=== PATIENT | female | born 1960 | race Caucasian/White ===

== ENCOUNTER 2020-11-25 12:20 | Emergency (ER) | payer SELFPAY ==
[~2020-11-25] VITALS: Ht 162.6 cm; Wt 88.5 kg
[2020-11-25 14:23] LABS: Basophils # (auto) 0.1 10 ^3/uL (0-0.2); Basophils % (auto) 0.7 % (0.0-2.0); Eosinophils # (auto) 0.1 10 ^3/uL (0-0.8); Eosinophils % (auto) 0.9 % (0.0-7.0); Hematocrit 38.8 % (36.0-46.0); Hemoglobin 13.2 g/dL (12.2-16.2); Lymphocytes # (auto) 1.3 10 ^3/uL (0.4-5.4); Mean Corpuscular Hemoglobin 29.8 pg (28.0-32.0); Mean Corpuscular Hgb Conc. 33.9 g/dL (32.0-36.0); Mean Corpuscular Volume 87.9 fL (80.0-100.0); Monocytes # (auto) 0.7 10 ^3/uL (0-1.3); Monocytes % (auto) 7.9 % (0.0-12.0); Neutrophils # (auto) 6.2 10 ^3/uL (1.6-8.6); Neutrophils % (auto) 74.5 % (37.0-80.0); Red Blood Cells 4.42 10^6/uL (4.0-5.20); White Blood Cell 8.4 10^3/uL (4.4-10.8)
[2020-11-25 14:33] LABS: Albumin 3.2 g/dL (3.4-5.0); Calcium 9.6 mg/dL (8.5-10.1); Potassium 3.8 mmol/L (3.5-5.1)
[2020-11-25 14:36] LABS: BUN/Creatinine Ratio 12.3; Bilirubin, Total 0.4 mg/dL (0.2-1.0); Total Protein 7.8 g/dL (6.4-8.2)
[2020-11-25] MEDS ORDERED: SODIUM CHLORIDE 0.9% 1,000 ML IV ONE (15:45)
[2020-11-25 18:15] VITALS: BP 120/77
== END 2020-11-25 18:45 | disposition home or self-care (01) ==
LOC: ER 12:20 → EDBD 12:20 → ER 18:45
DX: I95.9 Hypotension, unspecified (principal)
CPT/HCPCS: 36415; 80053; 85025; 93005; 96360; 99285; J7030

== ENCOUNTER 2021-09-17 14:07 | Inpatient (IN) | payer MEDICAID, OTHER ==
[~2021-09-17] VITALS: Ht 162.6 cm; Wt 76.2 kg
[2021-09-17] MEDS ORDERED: HYDROcodone-ACET 10/325MG TAB PO ONE (18:30)
[2021-09-17 21:36] LABS: Basophils # (auto) 0 10 ^3/uL (0-0.2); Basophils % (auto) 0.4 % (0.0-2.0); Eosinophils # (auto) 0.1 10 ^3/uL (0-0.8); Eosinophils % (auto) 0.8 % (0.0-7.0); Hemoglobin 12.6 g/dL (12.2-16.2); Lymphocytes # (auto) 2.2 10 ^3/uL (0.4-5.4); Lymphocytes % (auto) 24.3 % (10.0-50.0); Mean Corpuscular Hemoglobin 28.3 pg (28.0-32.0); Mean Corpuscular Hgb Conc. 34.1 g/dL (32.0-36.0); Mean Corpuscular Volume 82.9 fL (80.0-100.0); Monocytes # (auto) 0.9 10 ^3/uL (0-1.3); Monocytes % (auto) 10.5 % (0.0-12.0); Neutrophils # (auto) 5.7 10 ^3/uL (1.6-8.6); Nucleated Red Blood Cells % 0.1 %; Red Blood Cells 4.47 10^6/uL (4.0-5.20); Red Cell Distribution Width 15.9 % (11.8-14.3)
[2021-09-17 21:55] LABS: Albumin 3.8 g/dL (3.4-5.0); BUN/Creatinine Ratio 26.8; Calcium 9.3 mg/dL (8.5-10.1); Potassium 4.3 mmol/L (3.5-5.1)
[2021-09-17 21:58] LABS: Bilirubin, Total 0.4 mg/dL (0.2-1.0); Total Protein 7.9 g/dL (6.4-8.2)
[2021-09-17 22:04] LABS: INR 1.03 (0.9-1.15)
[2021-09-17] MEDS ORDERED: DEXTROSE (50%) 50ML SYRG IV PRN (22:45)
[2021-09-17] MEDS ORDERED: hydrALAZINE HCL 20 MG/ML VL IV PRN (22:45)
[2021-09-17] MEDS ORDERED: ONDANSETRON HCL 4 MG/2 ML VIAL IV PRN (22:45)
[2021-09-17] MEDS ORDERED: METOPROLOL TARTRATE 25 MG TAB PO ONE (22:45)
[2021-09-17] MEDS ORDERED: DOCUSATE SOD 100 MG CAP PO PRN (22:45)
[2021-09-17 23:10] LABS: Urine Bacteria NONE SEEN /hpf (None Seen); Urine Blood Negative /uL (Negative); Urine Mucus FEW (None Seen); Urine Specific Gravity 1.034 (1.001-1.035); Urine WBC 107 /hpf (0 - 5)
[2021-09-17] MEDS: SODIUM CHLORIDE 0.9% 1,000 ML IV SCH (23:22)
[2021-09-17] MEDS ORDERED: NITROGLYCERIN 0.4 MG SL TAB SL PRN (23:45)
[2021-09-17] MEDS ORDERED: MORPHINE SULFATE INJ 2 MG/ml SYRG IV PRN (23:45)
[2021-09-18] MEDS: HYDROcodone-ACET 5/325MG TAB PO PRN ×2 (00:06→15:22)
[2021-09-18] MEDS ORDERED: OXYB10TA14 PO (02:49)
[2021-09-18] MEDS ORDERED: MELO1TAB56 PO (02:49)
[2021-09-18] MEDS ORDERED: LEVO50TA7 PO (02:49)
[2021-09-18] MEDS ORDERED: METO25TA5 PO (02:49)
[2021-09-18] MEDS ORDERED: CYCL-839 PO (02:49)
[2021-09-18] MEDS ORDERED: FLUO-125 PO (02:49)
[2021-09-18] MEDS ORDERED: HYDR-4798 PO (02:49)
[2021-09-18 06:17] LABS: Basophils # (auto) 0.1 10 ^3/uL (0-0.2); Eosinophils # (auto) 0.2 10 ^3/uL (0-0.8); Eosinophils % (auto) 4.1 % (0.0-7.0); Hematocrit 33.2 % (36.0-46.0); Hemoglobin 11.1 g/dL (12.2-16.2); Lymphocytes # (auto) 2.1 10 ^3/uL (0.4-5.4); Lymphocytes % (auto) 36.3 % (10.0-50.0); Mean Corpuscular Hemoglobin 28.3 pg (28.0-32.0); Mean Corpuscular Hgb Conc. 33.5 g/dL (32.0-36.0); Mean Corpuscular Volume 84.4 fL (80.0-100.0); Monocytes # (auto) 0.7 10 ^3/uL (0-1.3); Neutrophils # (auto) 2.7 10 ^3/uL (1.6-8.6); Neutrophils % (auto) 46.6 % (37.0-80.0); Red Blood Cells 3.93 10^6/uL (4.0-5.20); Red Cell Distribution Width 16.5 % (11.8-14.3); White Blood Cell 5.7 10^3/uL (4.4-10.8)
[2021-09-18 06:30] LABS: Albumin 2.8 g/dL (3.4-5.0); Calcium 7.8 mg/dL (8.5-10.1); Potassium 3.5 mmol/L (3.5-5.1)
[2021-09-18 06:33] LABS: BUN/Creatinine Ratio 38.5; Bilirubin, Total 0.4 mg/dL (0.2-1.0); Total Protein 6.5 g/dL (6.4-8.2)
[2021-09-18] MEDS: InsuLIN REG 1unit/0.01ml Soln (100units/ml) SC SCH ×2 (07:00→11:30)
[2021-09-18 08:39] VITALS: BP 118/70
[2021-09-18] MEDS: METOPROLOL TARTRATE 25 MG TAB PO SCH ×2 (09:04→22:01)
[2021-09-18] MEDS: ACCU-CHEK COMFORT CURVE STRIP VI SCH ×2 (09:05→11:30)
[2021-09-18] MEDS: ENOXAPARIN SOD 40 MG/0.4 ML SYRINGE SC SCH (09:05)
[2021-09-18] MEDS: LEVOTHYROXINE SODIUM 25 MCG TAB PO SCH (09:05)
[2021-09-18] MEDS ORDERED: cefTRIAXone 1GM/50ML D5W 50 ML IV ONE (12:00)
[2021-09-18 13:00] VITALS: BP 110/60
[2021-09-18] MEDS: SODIUM CHLORIDE 0.9% 1,000 ML IV SCH (14:45)
[2021-09-18 16:48] VITALS: BP 118/73
[2021-09-18 22:00] VITALS: BP 105/56
[2021-09-18] MEDS: HYDROcodone-ACET 10/325MG TAB PO PRN (22:00)
[2021-09-19 03:24] LABS: Alcohol, Urine < 3.0 mg/dL (0-10); Amphetamine Screen, Urine NEGATIVE (NEGATIVE); Barbiturate Scree,Urine NEGATIVE (NEGATIVE); Benzodiazephine Screen, Urine NEGATIVE (NEGATIVE); Cannabinoid Screen, Urine NEGATIVE (NEGATIVE); Cocaine Screen, Urine NEGATIVE (NEGATIVE); Opiate Scree,Urine POSITIVE (NEGATIVE); Phencyclidine Screen, Urine NEGATIVE (NEGATIVE)
[2021-09-19 05:00] VITALS: BP 112/57
[2021-09-19] MEDS: LEVOTHYROXINE SODIUM 25 MCG TAB PO SCH (06:24)
[2021-09-19] MEDS: SODIUM CHLORIDE 0.9% 1,000 ML IV SCH ×2 (08:05→21:05)
[2021-09-19 08:51] VITALS: BP 106/45
[2021-09-19 09:00] VITALS: BP 106/45
[2021-09-19] MEDS: cefTRIAXone 1GM/50ML D5W 50 ML IV SCH (09:00)
[2021-09-19] MEDS: OXYBUTYNIN CHL 5 MG TAB PO SCH ×2 (10:00→22:49)
[2021-09-19] MEDS: ENOXAPARIN SOD 40 MG/0.4 ML SYRINGE SC SCH (10:00)
[2021-09-19] MEDS: FLUoxetine HCL 20 MG CAP PO SCH (10:00)
[2021-09-19] MEDS: METOPROLOL TARTRATE 25 MG TAB PO SCH ×2 (10:00→22:49)
[2021-09-19] MEDS: HYDROcodone-ACET 10/325MG TAB PO PRN (10:40)
[2021-09-19 12:00] VITALS: BP 109/66
[2021-09-19] MEDS: ACETAMINOPHEN 325 MG TAB PO PRN (20:58)
[2021-09-19 22:00] VITALS: BP 118/55
[2021-09-19] MEDS: MUPIROCIN 2% OINT 15gm or 22gm EACHNOSTRI SCH (22:00)
[2021-09-19] MEDS ORDERED: LORazepam 2MG/ML-1ML VIAL IV PRN (22:30)
[2021-09-20] MEDS: HYDROcodone-ACET 10/325MG TAB PO PRN (02:41)
[2021-09-20 05:00] VITALS: BP 129/68
[2021-09-20] MEDS: LEVOTHYROXINE SODIUM 25 MCG TAB PO SCH (06:43)
[2021-09-20 09:00] VITALS: BP 113/59
[2021-09-20] MEDS: cefTRIAXone 1GM/50ML D5W 50 ML IV SCH (09:00)
[2021-09-20] MEDS: FLUoxetine HCL 20 MG CAP PO SCH (10:00)
[2021-09-20] MEDS: METOPROLOL TARTRATE 25 MG TAB PO SCH ×2 (10:00→21:47)
[2021-09-20] MEDS: OXYBUTYNIN CHL 5 MG TAB PO SCH ×2 (10:00→21:47)
[2021-09-20] MEDS: ENOXAPARIN SOD 40 MG/0.4 ML SYRINGE SC SCH (10:00)
[2021-09-20] MEDS: MUPIROCIN 2% OINT 15gm or 22gm EACHNOSTRI SCH ×2 (10:00→21:46)
[2021-09-20] MEDS: ACETAMINOPHEN 325 MG TAB PO PRN (11:55)
[2021-09-20 13:00] VITALS: BP 123/69
[2021-09-20 17:00] VITALS: BP 143/81
[2021-09-20] MEDS: SODIUM CHLORIDE 0.9% 1,000 ML IV SCH (17:25)
[2021-09-20 22:00] VITALS: BP 133/73
[2021-09-21] MEDS: HYDROcodone-ACET 10/325MG TAB PO PRN ×2 (02:54→09:41)
[2021-09-21 05:00] VITALS: BP 144/72
[2021-09-21] MEDS: LEVOTHYROXINE SODIUM 25 MCG TAB PO SCH (06:10)
[2021-09-21 08:00] VITALS: BP 145/76
[2021-09-21 09:00] VITALS: BP 145/76
[2021-09-21] MEDS: ENOXAPARIN SOD 40 MG/0.4 ML SYRINGE SC SCH (09:40)
[2021-09-21] MEDS: cefTRIAXone 1GM/50ML D5W 50 ML IV SCH (09:40)
[2021-09-21] MEDS: OXYBUTYNIN CHL 5 MG TAB PO SCH ×2 (09:41→21:56)
[2021-09-21] MEDS: FLUoxetine HCL 20 MG CAP PO SCH (09:41)
[2021-09-21] MEDS: METOPROLOL TARTRATE 25 MG TAB PO SCH ×2 (09:41→21:57)
[2021-09-21] MEDS: MUPIROCIN 2% OINT 15gm or 22gm EACHNOSTRI SCH ×2 (09:42→21:56)
[2021-09-21] MEDS: SODIUM CHLORIDE 0.9% 1,000 ML IV SCH (10:05)
[2021-09-21] MEDS ORDERED: MUPI2CRE17 EX (10:08)
[2021-09-21 13:00] VITALS: BP 146/77
[2021-09-21 17:48] VITALS: BP 132/80
[2021-09-21] MEDS: ACETAMINOPHEN 325 MG TAB PO PRN (19:29)
[2021-09-21 22:00] VITALS: BP 120/72
[2021-09-22] MEDS: HYDROcodone-ACET 10/325MG TAB PO PRN (01:18)
[2021-09-22 05:00] VITALS: BP 159/82
[2021-09-22] MEDS: SODIUM CHLORIDE 0.9% 1,000 ML IV SCH (05:20)
[2021-09-22] MEDS: LEVOTHYROXINE SODIUM 25 MCG TAB PO SCH (06:33)
[2021-09-22] MEDS: cefTRIAXone 1GM/50ML D5W 50 ML IV SCH (08:19)
[2021-09-22] MEDS: FLUoxetine HCL 20 MG CAP PO SCH (08:20)
[2021-09-22] MEDS: OXYBUTYNIN CHL 5 MG TAB PO SCH (08:20)
[2021-09-22] MEDS: METOPROLOL TARTRATE 25 MG TAB PO SCH (08:21)
[2021-09-22] MEDS: HYDROcodone-ACET 5/325MG TAB PO PRN (08:21)
[2021-09-22] MEDS: MUPIROCIN 2% OINT 15gm or 22gm EACHNOSTRI SCH (08:26)
[2021-09-22] MEDS: ENOXAPARIN SOD 40 MG/0.4 ML SYRINGE SC SCH (08:27)
[2021-09-22 09:00] VITALS: BP 146/88
[2021-09-22 13:00] VITALS: BP 155/87
[2021-09-22 13:55] VITALS: BP 146/88
== END 2021-09-22 16:38 | disposition home or self-care (01) | DRG 204 ==
LOC: ER 14:07 → EDBD 14:07 → TELE 23:31 → TELE-WESTW 09-18 06:05
PROVIDERS: ADMIT Nurse Practitioner Family; ATTEND Family Medicine
DX: R55 Syncope and collapse (principal); D64.9 Anemia, unspecified; E03.9 Hypothyroidism, unspecified; E11.9 Type 2 diabetes mellitus without complications; G89.4 Chronic pain syndrome; Z20.822 Contact with and (suspected) exposure to COVID-19; W01.0XXA Fall on same level from slipping, tripping and stumbling without subsequent striking against object, initial encounter; N39.0 Urinary tract infection, site not specified; I10 Essential (primary) hypertension; M19.90 Unspecified osteoarthritis, unspecified site; Z80.3 Family history of malignant neoplasm of breast; Z82.49 Family history of ischemic heart disease and other diseases of the circulatory system; Y93.89 Activity, other specified; Y92.89 Other specified places as the place of occurrence of the external cause; Y99.8 Other external cause status; Z79.84 Long term (current) use of oral hypoglycemic drugs
CPT/HCPCS: 36415; 70450; 70551; 71045; 74176; 80053; 80307; 81001; 82962; 83036; 84443; 84484; 85025; 85610; 87040; 87081; 87086; 93005; 93306; 93886; 95819; 97110; 97163; 97530; G0378; J0696

== ENCOUNTER 2021-10-17 12:42 | Emergency (ER) | payer MEDICAID ==
[~2021-10-17] VITALS: Ht 165.1 cm; Wt 68.0 kg
[~2021-10-17 12:42] MED LIST: CYCL-839 PO; FLUO-125 PO; HYDR-4798 PO; LEVO50TA7 PO; MELO1TAB56 PO; METO25TA5 PO; MUPI2CRE17 EX; OXYB10TA14 PO
[2021-10-17 13:35] VITALS: BP 148/84
[2021-10-17] MEDS ORDERED: KETOROLAC TROMETH 60MG/2ML VIAL IM ONE (13:45)
[2021-10-17] MEDS ORDERED: HYDROcodone-ACET 5/325MG TAB PO ONE (15:00)
[2021-10-17] MEDS ORDERED: PRED20TA2 PO (15:53)
[2021-10-17] MEDS ORDERED: TRAM-297 PO (15:53)
== END 2021-10-17 15:57 | disposition home or self-care (01) ==
LOC: ER 12:42 → EDBD 12:42 → EDSEX 12:42 → ER 15:57
DX: M48.07 Spinal stenosis, lumbosacral region (principal); M54.16 Radiculopathy, lumbar region; G89.29 Other chronic pain; M54.50 Low back pain, unspecified; I10 Essential (primary) hypertension; E11.9 Type 2 diabetes mellitus without complications; E03.9 Hypothyroidism, unspecified; Z79.899 Other long term (current) drug therapy
CPT/HCPCS: 72131; 96372; 99284; J1885

== ENCOUNTER → 2024-07-10 | Outpatient (CLI) | payer MEDICAID ==
[~2024-07-10] MED LIST changes: +MELO15TA29 PO; -MELO1TAB56 PO; +PRED20TA2 PO; +TRAM-297 PO
[2024-07-10 13:12] LABS: Basophils # (auto) 0.1 10 ^3/uL (0-0.2); Basophils % (auto) 1.1 % (0.0-2.0); Eosinophils # (auto) 0.1 10 ^3/uL (0-0.8); Eosinophils % (auto) 1.3 % (0.0-7.0); Hematocrit 42.6 % (36.0-46.0); Hemoglobin 14.4 g/dL (12.2-16.2); Lymphocytes # (auto) 2.1 10 ^3/uL (0.4-5.4); Lymphocytes % (auto) 30.8 % (10.0-50.0); Mean Corpuscular Hemoglobin 30.8 pg (28.0-32.0); Mean Corpuscular Hgb Conc. 33.9 g/dL (32.0-36.0); Mean Corpuscular Volume 90.9 fL (80.0-100.0); Monocytes # (auto) 0.5 10 ^3/uL (0-1.3); Monocytes % (auto) 7.6 % (0.0-12.0); Neutrophils # (auto) 4.1 10 ^3/uL (1.6-8.6); Neutrophils % (auto) 59.2 % (37.0-80.0); Nucleated Red Blood Cells % 0.1 %; Platelet Count (auto) 276 10^3/uL (140-450); Red Blood Cells 4.68 10^6/uL (4.0-5.20); Red Cell Distribution Width 13.9 % (11.8-14.3); White Blood Cell 6.9 10^3/uL (4.4-10.8)
[2024-07-10 13:39] LABS: Alanine Aminotransferase 27 U/L (7-40); Albumin 4.5 g/dL (3.2-4.8); Anion Gap 8 (5-15); Aspartate Aminotransferase 22 U/L (13-40); BUN/Creatinine Ratio 22.8 (10.0-20.0); Blood Urea Nitrogen 18 mg/dL (9-23); Calcium 9.8 mg/dL (8.7-10.4); Carbon Dioxide 27 mmol/L (20-31); Chloride 105 mmol/L (98-107); Glucose 79 mg/dL (74-106); HDL Cholesterol 44 mg/dL (40-59); Potassium 4.5 mmol/L (3.5-5.1); Sodium 140 mmol/L (136-145); Total Protein 7.7 g/dL (5.7-8.2)
[2024-07-10 13:40] LABS: Bilirubin, Total 0.6 mg/dL (0.2-1.0)
[2024-07-10 13:43] LABS: Alkaline Phosphatase 127 U/L (46-116); Cholesterol 216 mg/dL (< 200); LDL Cholesterol 141 mg/dL (< 100); Triglycerides 214 mg/dL (< 150)
== END | disposition home or self-care (01) ==
LOC: LAB 12:43
PROVIDERS: ATTEND Nurse Practitioner Family
DX: I10 Essential (primary) hypertension (principal); E03.9 Hypothyroidism, unspecified; E66.9 Obesity, unspecified; Z00.01 Encounter for general adult medical examination with abnormal findings
CPT/HCPCS: 36415; 80053; 80061; 82306; 84443; 85025

== ENCOUNTER 2025-01-07 10:45 | Outpatient (CLI) | payer MEDICAID ==
[2025-01-07 11:54] LABS: Hematocrit 43.6 % (36.0-46.0); Hemoglobin 14.9 g/dL (12.2-16.2); Mean Corpuscular Hemoglobin 31.5 pg (28.0-32.0); Mean Corpuscular Volume 92.0 fL (80.0-100.0); Nucleated Red Blood Cells % 0.1 %
[2025-01-07 12:02] LABS: Urine Protein, UAD Negative (Negative)
[2025-01-07 12:15] LABS: INR 0.99 (0.9-1.15); Partial Thromboplastin Time 39.3 SEC (24.5-34.5); Prothrombin Time 10.5 sec (9.3-11.8)
[2025-01-07 12:22] LABS: Alanine Aminotransferase 33 U/L (7-40); Albumin 4.5 g/dL (3.2-4.8); Anion Gap 9 (5-15); BUN/Creatinine Ratio 15.6 (10.0-20.0); Blood Urea Nitrogen 12 mg/dL (9-23); Calcium 9.5 mg/dL (8.7-10.4); Carbon Dioxide 27 mmol/L (20-31); Chloride 102 mmol/L (98-107); Glucose 78 mg/dL (74-106); Potassium 4.5 mmol/L (3.5-5.1); Sodium 138 mmol/L (136-145); Total Protein 8.0 g/dL (5.7-8.2)
[2025-01-07 12:23] LABS: Alkaline Phosphatase 119 U/L (46-116); Bilirubin, Total 0.6 mg/dL (0.2-1.0)
== END 2025-01-07 17:00 | disposition home or self-care (01) ==
LOC: LAB 10:45
PROVIDERS: ATTEND Nurse Practitioner Family
DX: Z01.812 Encounter for preprocedural laboratory examination (principal); M24.569 Contracture, unspecified knee
CPT/HCPCS: 36415; 80053; 81003; 85025; 85610; 85730